=== PATIENT | male | born 2000 | race African-American/Black ===

== ENCOUNTER 2020-08-21 11:46 | Emergency (ER) | payer OTHER ==
[~2020-08-21] VITALS: Ht 188 cm; Wt 76.8 kg
[2020-08-21] MEDS ORDERED: IBUPROFEN 800 MG TAB PO ONE (14:00)
--- NOTE | 2020-08-21 14:33 | REP ---
INDICATION: deadlifting this am, severe bony tenderness since COMPARISON: None. TECHNIQUE: AP, lateral, bilateral oblique, and coned-down views of the lumbar spine. FINDINGS: Alignment and lordosis maintained. Vertebral bodies are intact. Disc spaces are relatively normal/age-appropriate. No acute fracture/compression injury or subluxation. No obvious spondylolysis or spondylolisthesis.. IMPRESSION: Normal Lumbosacral Spine series. <Electronically signed by Jerrod Ott > 08/21/20 1240
[2020-08-21 14:44] VITALS: BP 133/80
== END 2020-08-21 15:15 | disposition home or self-care (01) ==
LOC: M ED 11:46
DX: M54.5 Low back pain (principal); X50.0XXA Overexertion from strenuous movement or load, initial encounter; Y93.B9 Activity, other involving muscle strengthening exercises; Y92.9 Unspecified place or not applicable; Y99.9 Unspecified external cause status; F17.200 Nicotine dependence, unspecified, uncomplicated